=== PATIENT | female | born 1965 | race Caucasian/White ===

== ENCOUNTER 2020-01-08 12:54 | Emergency (ER) | payer MEDICAID ==
[2020-01-08] MEDS ORDERED: methylPREDNISolone Sodium Succinate 125 MG/2 ML SDV IM ONE (13:44)
[2020-01-08] MEDS ORDERED: cefTRIAXone 1 GM, Lidocaine 1% 2.1 ML IM ONE ×2 (13:45)
[2020-01-08] MEDS ORDERED: Take Home: Azithromycin 250 MG, 2 Tab Pack PO ONE (13:46)
[2020-01-08] MEDS ORDERED: Take Home: predniSONE 20 MG, 2 Tab Pack PO ONE (13:46)
--- NOTE | 2020-01-08 13:54 | EDM.PDOC ---
ED HPI GENERAL MEDICAL PROBLEM - General Chief Complaint: Respiratory Problem Stated Complaint: cough Time Seen by Provider: 01/08/20 13:30 Source of Information: Reports: Patient History Limitations: Reports: No Limitations - History of Present Illness INITIAL COMMENTS - FREE TEXT/NARRATIVE: Patient presents to ER with complaints of sinus congestion, cough, and shortness of breath. States started noting increased sinus congestion about a week ago. Started taking allergy meds to help with the congestion. Has not noted much improvement with that. Has felt chills, sweating at times but no known fever for sure. She has production with her cough, has mostly been clear. History of asthma, COPD. Has been using her rescue inhaler more. Also on Advair. Does have a nebulizer at home but has not been using that. No known exposure to anyone with COVID. Onset: Gradual Duration: Week(s): Location: Reports: Head, Chest Quality: Reports: Ache Severity: Mild Associated Symptoms: Reports: Cough, cough w sputum, Fever/Chills, Shortness of Breath. 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 Denies: Fever, Weakness HEENT: Reports: Rhinitis, Sinus Problem. Denies: Ear Pain, Throat Pain, Vertigo Respiratory: Reports: Shortness of Breath, Cough, Sputum Cardiovascular: Denies: Chest Pain, Edema, Lightheadedness Endocrine: Denies: Fatigue GI/Abdominal: Denies: Abdominal Pain, Nausea, Vomiting : Reports: No Symptoms Musculoskeletal: Reports: No Symptoms Skin: Reports: No Symptoms Neurological: Reports: No Symptoms Psychiatric: Reports: No Symptoms ED EXAM, GENERAL - Physical Exam Exam: See Below Exam Limited By: No Limitations General Appearance: Alert, WD/WN, No Apparent Distress Ears: Normal External Exam, Normal TMs Nose: Normal Inspection, Normal Mucosa, Nasal Drainage (purulent rhinorrhea noted bilateral nares), Other (maxillary sinus pressure with palpation, right greater than left.) Throat/Mouth: Normal Inspection, Normal Oropharynx Head: Normocephalic Neck: Normal Inspection, Supple, Non-Tender Respiratory/Chest: No Respiratory Distress, Wheezing (inspiratory and expiratory wheezing throughout) Cardiovascular: Regular Rate, Rhythm GI/Abdominal: Normal Bowel Sounds, Soft, Non-Tender Extremities: Normal Inspection, No Pedal Edema Neurological: Alert, Oriented Skin Exam: Warm, Dry Course - Orders/Labs/Meds Labs: Laboratory Tests 01/08/20 Range/Units 13:16 COVID-19 ([facility]) Negative (NEGATIVE) Meds: Medications Discontinued Medications Generic Name Dose Route Start Last Admin Trade Name Freq PRN Reason Stop Dose Admin Azithromycin 2 packet 01/08/20 13:46 Take Home: Azithromycin 250 Mg, 2 Tab Pack PO 01/08/20 13:47 ONETIME ONE Ceftriaxone Sodium 1 gm/ 0 gm 01/08/20 13:45 Lidocaine HCl 2.1 ml IM 01/08/20 13:46 ONETIME ONE Methylprednisolone Sodium Succinate 125 mg 01/08/20 13:44 Solu-Medrol IM 01/08/20 13:45 ONETIME ONE Prednisone 1 packet 01/08/20 13:46 Take Home: Prednisone 20 Mg, 2 Tab Pack PO 01/08/20 13:47 ONETIME ONE - Re-Assessments/Exams Free Text/Narrative Re-Assessment/Exam: 01/08/20 14:04 COVID testing was done today prior to my exam and was negative Departure - Departure Time of Disposition: 14:04 Disposition: Home, Self-Care 01 Condition: Good Clinical Impression: Exacerbation of asthma, Acute bronchiolitis - Discharge Information *PRESCRIPTION DRUG MONITORING PROGRAM REVIEWED*: No *COPY OF PRESCRIPTION DRUG MONITORING REPORT IN PATIENT GERALD: No Instructions: Shortness of Breath, Adult, [id number], Acute Bronchitis, Adult, [id number] Forms: ED Department Discharge Additional Instructions: 1. Rest 2. Push fluids 3. Use inhalers as prescribed, nebulizer treatments 3-4 times per day over the next 3 days and then PRN 4. Zithromax- Take 2 tablets today, one tablet daily for 4 days 5. Prednisone 20 mg- 2 tabs daily for 4 days. Start first dose tomorrow 6. Follow up with primary care provider for ongoing concerns or sooner in the ER if breathing difficulties
== END 2020-01-08 14:27 | disposition home or self-care (01) ==
LOC: VM.ED 12:54
DX: J21.9 Acute bronchiolitis, unspecified (principal); J45.901 Unspecified asthma with (acute) exacerbation; Z20.828 Contact with and (suspected) exposure to other viral communicable diseases
CPT/HCPCS: 96372; 99283-GF; 99284; A9270-GY; J0696; J2001; J2930; J7512; U0002